=== PATIENT | female | born 1985 | race Caucasian/White ===

== ENCOUNTER 2017-04-10 18:00 | Inpatient (IN) | payer OTHER ==
[~2017-04-10] VITALS: Ht 160 cm; Wt 77.3 kg
[2017-04-10] MEDS ORDERED: PREN1TAB79 PO (19:42)
[2017-04-10] MEDS ORDERED: IRON1TAB78 PO (19:42)
[2017-04-10 19:43] VITALS: Ht 160 cm; Wt 77.3 kg
[2017-04-10] MEDS: LACTATED RINGER'S 1,000 ML IV SCH (19:50)
[2017-04-10] MEDS ORDERED: BUTORPHANOL 2 MG INJ IV PRN ×2 (20:00)
[2017-04-10] MEDS ORDERED: OXYTOCIN 30 UNITS/LR 500 ML IV PRN (20:00)
[2017-04-10] MEDS ORDERED: MISOPROSTOL 200 MCG TAB PR PRN (20:00)
[2017-04-10] MEDS ORDERED: IBUPROFEN 600 MG TAB PO PRN (20:00)
[2017-04-10] MEDS ORDERED: CARBOPROST 250 MCG INJ IM PRN (20:00)
[2017-04-10] MEDS ORDERED: OXYTOCIN 30 UNITS/LR 500 ML IV SCH ×3 (20:00)
[2017-04-10] MEDS ORDERED: METHYLERGONOVINE 0.2 MG INJ IM PRN (20:00)
[2017-04-10] MEDS ORDERED: LIDOCAINE 1% (MPF) 30 ML INJ INJ PRN (20:00)
[2017-04-10] MEDS ORDERED: LACTATED RINGER'S 1,000 ML IV PRN (20:00)
[2017-04-10] MEDS ORDERED: OXYCODONE/ASPIRIN (4.88/325) TAB PO PRN (20:00)
[2017-04-10] MEDS ORDERED: MINERAL OIL LIGHT 10 ML VIAL TOP PRN (20:00)
[2017-04-10 20:09] LABS: BASOPHILS % 0.2 % (0.0-2.0); EOSINOPHILS # 0.2 10^3/ul (0.0-0.5); EOSINOPHILS % 1.7 % (0.0-7.0); HEMATOCRIT 34.8 % (37.0-47.0); HEMOGLOBIN 11.9 g/dl (12.0-16.0); LYMPHOCYTES # 1.5 10^3/ul (0.8-2.9); LYMPHOCYTES % 14.6 % (15.0-51.0); MEAN CORPUSCULAR HEMOGLOBIN 30.1 pg (29.0-33.0); MEAN CORPUSCULAR HGB CONC 34.2 g/dl (32.0-37.0); MEAN CORPUSCULAR VOLUME 88.1 fl (82.0-101.0); MEAN PLATELET VOLUME 11.5 fl (7.4-10.4); MONOCYTE # 0.8 10^3/ul (0.3-0.9); MONOCYTES % 7.8 % (0.0-11.0); NEUTROPHIL # 7.6 10^3/ul (1.6-7.5); NEUTROPHILS % 75.1 % (39.0-77.0); PLATELET COUNT 159 10^3/UL (140-415); RED BLOOD COUNT 3.95 10^6/ul (4.20-5.40); RED CELL DISTRIBUTION WIDTH 13.2 % (11.5-14.5); WHITE BLOOD COUNT 10.1 10^3/ul (4.8-10.8)
[2017-04-10 20:23] LABS: INR 0.89; PT RATIO 0.9
[2017-04-10 20:24] LABS: PARTIAL THROMBOPLASTIN TIME 26.6 Sec (25.0-35.0)
[2017-04-11] MEDS: LACTATED RINGER'S 1,000 ML IV SCH ×5 (00:45→23:48)
[2017-04-11] MEDS ORDERED: FENTAnyl 2MCG/ML-ROPIV 0.2% 100 ML ONE (04:20)
[2017-04-11] MEDS ORDERED: NALOXONE (0.4 MG/ML) INJ IV PRN ×2 (05:00→19:00)
[2017-04-11] MEDS ORDERED: FENTAnyl 2MCG/ML-ROPIV 0.2% 100 ML BAG EPI SCH (05:00)
[2017-04-11] MEDS ORDERED: LIDOCAINE 2% (SDV) 5 ML INJ ONE (07:00)
--- NOTE | 2017-04-11 08:20 | HP ---
Date/Time of Note Date/Time of Note DATE: 04/11/17 TIME: 08:18 OB - History Hx of Present Chief Complaint: Admitted for induction for postdates Estimated Due Date: Apr 07, 2017 : 2 Para: 1 Care: Good Care Ultrasounds: Normal mid trimester US Obstetrical Complications: None Medical Complications: None Past Family/Social History * Past Medical, Surgical, Family and Obstetric Histories reviewed from chart. Rubella: immune RPR/VDRL: Negative GBS Status: Negative HBsAG: Negative (FHR: some isolated variable decelerations were noticed.Category 1 now) OB Admission Exam Last 72 hours Lab Results CBC & BMP 04/10/17 19:30 WALDEMAR SUGGS MD Apr 11, 2017 08:20
--- NOTE | 2017-04-11 08:30 | PN ---
Date/Time of Note Date/Time of Note DATE: 04/11/17 TIME: 08:27 OB Subjective Subjective Subjective Pitocin was stopped due to variable decelerations FHR: category 1 now OB Objective Objective Objective Cervix: 2 cms 80% effaced - 2 Station AROM:scanty fluid HEENT: WNL Heart: Rhythm Normal Lungs: Clear Abdomen: WNL Extremities: Normal Reflexes: Normal Cervical Dilatation: 2cm Effacement: 75% Station: -2 Membranes: Ruptured Amniotic Fluid: Clear Heart Rate: 130's Accelerations: Accelerations Present Decelerations: No Decelerations Varibility: Moderate Contractions on Admission: 6-10 Minutes Apart Intensity: Mild WALDEMAR SUGGS MD Apr 11, 2017 08:30
[2017-04-11] MEDS ORDERED: CEFAZOLIN 2 GM/50 ML (PMX) 50 ML IVPB ONE ×2 (09:34→10:00)
[2017-04-11] MEDS ORDERED: morphine SULFATE/PF (10 MG/10 ML) INJ ONE (10:13)
[2017-04-11] MEDS ORDERED: KETOROLAC 30 MG INJ ONE (10:19)
[2017-04-11] MEDS ORDERED: METOCLOPRAMIDE 10 MG INJ ONE (10:19)
[2017-04-11] MEDS ORDERED: EPHEDrine SULFATE 50 MG/5 ML SYG ONE (10:34)
[2017-04-11 10:50] LABS: CBV Base Excess -3.5 mmol/L; CBV Oxygen Sat 41.1 mmHG; CBV Total Hemglobin 16.5 g/dl; Cord Blood Venous pO2 21.9 mmHG (15.0-45.0); Fraction OxyHgb Cord Venous 40.1 %; MODE ROOM AIR; MetHgb Cord Venous 1.4 %; Sample Type CBV
--- NOTE | 2017-04-11 10:52 | PREOPHP ---
DATE OF ADMISSION: 04/10/2017 ON/[employer] MANAGER PHYSICIAN: Everette Aguilar MD. CHIEF COMPLAINT: Repetitive prolonged decelerations of heart rate. HISTORY OF PRESENT ILLNESS: This is a 31-year-old female, 2, para 1, whose EDC confirmed by serial ultrasound done of the [facility] was April 07. She was admitted yesterday for induction of labor for postdates. Throughout the night, there were small variable decelerations and the Pitocin stimulation was stopped. heart rate went back to category 1. Early this morning she was AROM and scanty fluid came out. Pitocin was restarted. A prolonged deceleration reappeared about an hour and half later, and the Pitocin was stopped. The patient remained no progress and the cervix still being 1-2 cm, remote from delivery. In view of the repeated variables and prolonged deceleration the patient is counseled to have this baby by section now. The benefits, risks, and possible complications were discussed with the patient. The surgical informed consent was obtained. All her questions were answered to her satisfaction. PAST MEDICAL HISTORY: She has had another delivered vaginally with no problems. She denies any medical problems, including diabetes, cardiovascular disease, hypertension, renal disease, liver disease, neurologic disease, or thyroid problems. ALLERGIES: SHE HAS NO KNOWN ALLERGIES. REVIEW OF SYSTEMS: A 12 point review of systems is noncontributory. FAMILY HISTORY: Noncontributory. PHYSICAL EXAMINATION: GENERAL APPEARANCE: Well developed, well nourished, in distress because of the situation. VITAL SIGNS: Stable. Blood pressure 100/60. HEENT: Within normal limits. Pupils are PERRLA. NECK: Supple. Thyroid is not palpable. There is no lymphadenopathy. LUNGS: Clear to percussion auscultation. HEART: Normal sinus rhythm. No murmur. ABDOMEN: Soft, enlarged uterus is about 34 cm above the pubic bone. Single baby, longitudinal lie. heart rate at the time is 140, there are no decelerations. PELVIC: Pelvic exam recently number Dr. Aguilar unchanged, cervix is 2 cm, 80 percent effaced. Baby still high. EXTREMITIES: Within normal limits. NEUROLOGIC: Also normal. IMPRESSION: Forty weeks and 4 days gestation. distress. Patient will be admitted via immediate section. Dictated By: Eros Dawson MD /fnt/sahra /Document#: [id number] CC: Everette Aguilar MD;*End* MTDD
[2017-04-11] MEDS ORDERED: OXYTOCIN 30 UNITS/LR 500 ML IV ONE (11:12)
--- NOTE | 2017-04-11 11:28 | SIPON ---
Date/Time of Note Date/Time of Note DATE: 04/11/17 TIME: 11:25 Dictated Operative Report Preoperative Diagnosis 40 weeks and 4 days, distress Postoperative Diagnosis Same Operation/Procedure Performed Surgeon Dr.Carlos Otis Dawson assistant customer service manager Dr.Ramin Aguialr Anesthesia: epidural Estimated blood loss: other Transfusion Required none Specimen Placenta.Blood gases Grafts/Implants none Complications none WALDEMAR DAWSON MD Apr 11, 2017 11:28
[2017-04-11] MEDS ORDERED: ONDANSETRON 4 MG INJ IV PRN ×3 (11:30→19:00)
[2017-04-11] MEDS ORDERED: MISOPROSTOL 200 MCG TAB PR PRN (11:30)
[2017-04-11] MEDS ORDERED: DIPHENHYDRAMINE 50 MG INJ IV PRN ×2 (11:30→19:00)
[2017-04-11] MEDS ORDERED: MEPERIDINE 25 MG INJ IV PRN (11:30)
[2017-04-11] MEDS ORDERED: METOCLOPRAMIDE 10 MG INJ IV PRN (11:30)
[2017-04-11] MEDS ORDERED: OXYCODONE/ACETAMINOPHEN (5/325) TAB PO PRN (11:30)
[2017-04-11] MEDS ORDERED: METHYLERGONOVINE 0.2 MG INJ IM PRN (11:30)
[2017-04-11] MEDS ORDERED: LANOLIN 7 GM TUBE TOP PRN (11:30)
[2017-04-11] MEDS ORDERED: CARBOPROST 250 MCG INJ IM PRN (11:30)
[2017-04-11] MEDS ORDERED: OXYTOCIN 30 UNITS/LR 500 ML IV PRN (11:30)
[2017-04-11] MEDS ORDERED: HYDROmorphONE (0.2 MG/ML) 10ML SYG IV PRN ×2 (11:30)
[2017-04-11] MEDS: HYDROmorphONE (0.2 MG/ML) 10ML SYG IV PRN ×2 (12:24→12:44)
[2017-04-11 13:34] LABS: HEMATOCRIT 28.5 % (37.0-47.0); HEMOGLOBIN 9.5 g/dl (12.0-16.0)
[2017-04-11 13:50] VITALS: BP 120/71; PULSE 96; RESP 20
[2017-04-11] MEDS: IBUPROFEN 800 MG TAB PO SCH ×2 (14:00→22:00)
[2017-04-11 16:08] VITALS: BP 119/71; PULSE 87; RESP 18
[2017-04-11] MEDS ORDERED: HYDROmorphONE 1 MG/ML SYG IV PRN ×5 (18:00→19:00)
[2017-04-11] MEDS ORDERED: DIPHENHYDRAMINE 50 MG INJ IM PRN (18:00)
[2017-04-11] MEDS: CEFAZOLIN 2 GM/50 ML (PMX) 50 ML IV SCH (18:03)
[2017-04-11] MEDS ORDERED: KETOROLAC 30 MG INJ IV PRN (19:00)
[2017-04-11] MEDS ORDERED: LACTATED RINGER'S 1,000 ML IV SCH (19:30)
[2017-04-11 19:45] VITALS: BP 109/72; PULSE 103; RESP 18
[2017-04-11] MEDS: OXYTOCIN 30 UNITS/LR 500 ML IV SCH (19:55)
[2017-04-11 23:45] VITALS: BP 107/73; PULSE 90; RESP 18
[2017-04-11] MEDS: KETOROLAC 30 MG INJ IV PRN (23:56)
[2017-04-12] MEDS: CEFAZOLIN 2 GM/50 ML (PMX) 50 ML IV SCH ×2 (02:04→03:30)
[2017-04-12 02:10] VITALS: BP 98/53; PULSE 106; RESP 18
[2017-04-12 04:00] VITALS: BP 104/59; PULSE 101; RESP 18
[2017-04-12] MEDS: IBUPROFEN 800 MG TAB PO SCH ×3 (06:00→21:32)
--- NOTE | 2017-04-12 06:14 | OPR ---
DATE OF OPERATION: 04/11/2017 PREOPERATIVE DIAGNOSES: 1. Forty weeks and 4 days gestation. 2. distress. POSTOPERATIVE DIAGNOSES: 1. Forty weeks and 4 days gestation. 2. distress. OPERATIVE PROCEDURE: Emergency low segment transverse section. SURGEON: Eros Dawson MD MOUNTED POLICE: Dr. Lauren MD ANESTHESIA: Epidural by MD Junior FINDINGS: Baby girl, scores 8 and 9. Blood gases were sent as well as the placenta to pathology. ESTIMATED BLOOD LOSS: 1000 mL. COMPLICATIONS: None. PROCEDURE AND FINDINGS: With the patient under good general anesthesia, she was laid in the dorsal recumbent position, tilted to the left side. She had a Gomez catheter draining the bladder. After appropriate booster of the epidural anesthesia, her abdomen and upper thighs were prepped with ChloraPrep and after 3 minutes she was draped in the usual sterile fashion for this procedure. A Pfannenstiel incision was done and carried through all the layers of the abdominal wall with ease. The abdomen and uterine segment was opened transversely high and a living female child was delivered from LOP position and immediately handed to the respiratory team commissions coordinator. The baby had score 8 at 1st minute and 9 at 5 minutes. Supple umbilical cord was sent for blood gases. The placenta was delivered and also sent to pathology. The uterine cavity cleansed with a clean moist laparotomy pad. The incision of the uterus was closed with a continuous running stitch of number 1 PDS. A small bleeder of the left corner was controlled with a [id number] suture of 0 Vicryl. The pelvis was thoroughly cleansed with clean, moist laparotomy pads. The incision of the uterus was checked for bleeders and there were none. It was covered with Interceed to avoid adhesions. The abdomen was closed in layers starting with the peritoneum with continuous running stitches of 0 chromic catgut. The fascia was closed with a continuous running stitch of 0 Vicryl. Subcutaneous tissues were approximated with continuous running stitches of 0 plain gut.The skin was brought together with 4-0 Monocryl. Sterile pressure dressing was applied. Patient taken to recovery room with vital signs stable. ESTIMATED BLOOD LOSS: 1000 mL. COUNTS: Needle, sponge, and instrument count at the end of the procedure were correct twice. There was about 600 mL of clear urine in the Gomez bag. Dictated By: Eros Dawson MD /aden/madhavi /Document#: [id number] CC: Everette Aguilar MD [facility]
[2017-04-12 08:30] VITALS: BP 105/58; PULSE 104; RESP 20
--- NOTE | 2017-04-12 08:47 | PN ---
Date/Time of Note Date/Time of Note DATE: 04/12/17 TIME: 08:45 OB Subjective Subjective Subjective Looks good,sitting up in bed.Good pain control.Good output.Minimal vaginal bleeding. OB Objective Objective Objective CBC pending,pulse 100.Denies dizziness. HEENT: WNL Heart: Rhythm Normal Lungs: Clear Extremities: Normal WALDEMAR SGUGS MD Apr 12, 2017 08:47
[2017-04-12] MEDS ORDERED: INFLUENZA VIRUS VACCINE 0.5 ML (DISPENSING) IM* ONE (09:00)
[2017-04-12 09:16] LABS: BASOPHILS % 0.1 % (0.0-2.0); EOSINOPHILS # 0.1 10^3/ul (0.0-0.5); EOSINOPHILS % 0.5 % (0.0-7.0); HEMATOCRIT 21.4 % (37.0-47.0); HEMOGLOBIN 7.2 g/dl (12.0-16.0); LYMPHOCYTES # 1.1 10^3/ul (0.8-2.9); LYMPHOCYTES % 10.2 % (15.0-51.0); MEAN CORPUSCULAR HEMOGLOBIN 30.3 pg (29.0-33.0); MEAN CORPUSCULAR HGB CONC 33.6 g/dl (32.0-37.0); MEAN CORPUSCULAR VOLUME 89.9 fl (82.0-101.0); MEAN PLATELET VOLUME 11.2 fl (7.4-10.4); MONOCYTE # 0.9 10^3/ul (0.3-0.9); MONOCYTES % 7.7 % (0.0-11.0); RED BLOOD COUNT 2.38 10^6/ul (4.20-5.40); RED CELL DISTRIBUTION WIDTH 13.9 % (11.5-14.5); WHITE BLOOD COUNT 11.1 10^3/ul (4.8-10.8)
[2017-04-12] MEDS: KETOROLAC 30 MG INJ IV PRN (09:21)
[2017-04-12 09:24] LABS: PLATELET COUNT 121 10^3/UL (140-415)
[2017-04-12] MEDS ORDERED: CEFAZOLIN 2 GM/50 ML (PMX) 50 ML IVPB SCH (11:00)
--- NOTE | 2017-04-12 12:01 | PN ---
Date/Time of Note Date/Time of Note DATE: 04/12/17 TIME: 11:47 Assessment/Plan VTE Prophylaxis VTE Prophylaxis Intervention: ambulation Lines/Catheters IV Catheter Type (from Nrsg): Peripheral IV Subjective 24 Hr Interval Summary Free Text/Dictation aneshesia note: A 31 year female s/p duramorph pod #1 id doing well. pain is controlled. no n/v , headache, itching, back pain ,or inflammation. care per surgery Exam/Review of Systems Vital Signs Vitals Vital Signs Date Time Temp Pulse Resp B/P Pulse Ox O2 Delivery O2 Flow Rate FiO2 04/12/17 08:30 98.8 104 20 105/58 97 Room Air 04/12/17 03:40 21 Intake and Output 04/11/17 04/11/17 04/12/17 15:00 23:00 07:00 Intake Total 125 ml 500 ml Output Total 800 ml 600 ml 900 ml Balance -675 ml -100 ml -900 ml Results Result Diagram: 04/12/17 0844 Results 24 hrs Laboratory Tests Test 04/11/17 13:25 04/12/17 08:44 Hemoglobin 9.5 #L 7.2 #L Hematocrit 28.5 L 21.4 #L White Blood Count 11.1 H Red Blood Count 2.38 #L Mean Corpuscular Volume 89.9 Mean Corpuscular Hemoglobin 30.3 Mean Corpuscular Hemoglobin Concent 33.6 Red Cell Distribution Width 13.9 Platelet Count 121 #L Mean Platelet Volume 11.2 H Neutrophils % 81.0 H Lymphocytes % 10.2 L Monocytes % 7.7 Eosinophils % 0.5 Basophils % 0.1 Nucleated Red Blood Cells % 0.0 Neutrophils # 9.0 H Lymphocytes # 1.1 Monocytes # 0.9 Eosinophils # 0.1 Basophils # 0.0 Nucleated Red Blood Cells # 0.0 Medications Medications Current Medications Lactated Ringer's (Lr) 1,000 ml @ 125 mls/hr Q8H IV Last administered on t 23:48; Admin Dose 125 MLS/HR; Start 04/11/17 at 11:20 Oxycodone/ Acetaminophen (Percocet (5/ 325)) 1 tab Q4H PRN PO PAIN LEVEL 4-6; Start 04/11/17 at 11:30 Oxycodone/ Acetaminophen (Percocet (5/ 325)) 2 tab Q4H PRN PO PAIN LEVEL 7-10; Start 04/11/17 at 11:30 Ibuprofen (Motrin) 800 mg Q8 PO ; Start 04/11/17 at 14:00 Simethicone (Mylicon) 160 mg Q8H PRN PO DISTENSION/GAS/BLOATING; Start at 11:30 Diphtheria/ Tetanus/Acell Pertussis 0.5 ml 0.5 ml ONCE ONCE IM* ; Start at 09:00; Stop 04/14/17 at 09:01 Oxytocin/Lactated Ringer's 500 ml @ 0 mls/hr ONCE PRN IV For Hemorrhage Management Last administered on 04/11/17 12:22; Admin Dose 125 MLS/HR; Start at 11:30 Methylergonovine Maleate (Methergine) 0.2 mg ONCE PRN IM VAGINAL BLEEDING; Start 04/11/17 at 11:30 Carboprost Tromethamine (Hemabate) 250 mcg ONCE PRN IM VAGINAL BLEEDING; Start 04/11/17 at 11:30 Misoprostol (Cytotec) 1,000 mcg ONCE PRN DE VAGINAL BLEEDING; Start 04/11/17 at 11:30 Diphenhydramine HCl (Benadryl) 25 mg Q6H PRN IM ITCHING; Start 04/11/17 at 18: 00 Hydromorphone HCl (Dilaudid) 1 mg Q4H PRN IV PAIN; Start 04/11/17 at 18:00 Hydromorphone HCl (Dilaudid) 0.2 mg Q4H PRN IV PAIN; Start 04/11/17 at 18:00 Ketorolac Tromethamine (Toradol) 30 mg Q6H PRN IV PAIN Last administered on 09:21; Admin Dose 30 MG; Start 04/11/17 at 18:00; Stop 04/14/17 at 17:59 Ondansetron HCl (Zofran Inj) 4 mg Q6H PRN IV NAUSEA AND/OR VOMITING; Start at 18:00 Naloxone HCl (Narcan) 0.1 mg Q2M PRN IV FOR RESP RATE 8 OR LESS; Start at 19:00; Stop 04/12/17 at 18:59 Ketorolac Tromethamine (Toradol) 30 mg Q6H PRN IV PAIN; Start 04/11/17 at 19:00 ; Stop 04/12/17 at 18:59 Hydromorphone HCl (Dilaudid) 1 mg Q3H PRN IV BREAKTHROUGH PAIN; Start 04/11/17 at 19:00; Stop 04/12/17 at 18:59 Hydromorphone HCl (Dilaudid) 0.2 mg Q3H PRN IV PAIN LEVEL 1-5; Start 04/11/17 at 19:00; Stop 04/12/17 at 18:59 Hydromorphone HCl (Dilaudid) 0.4 mg Q3H PRN IV PAIN LEVEL 6-10; Start 04/11/17 at 19:00; Stop 04/12/17 at 18:59 Diphenhydramine HCl (Benadryl) 25 mg Q6H PRN IV ITCHING; Start 04/11/17 at 19: 00; Stop 04/12/17 at 18:59 Ondansetron HCl 4 mg 4 mg Q6H PRN IV NAUSEA AND/OR VOMITING; Start 04/11/17 at 19:00; Stop 04/12/17 at 18:59 Oxytocin/Lactated Ringer's 500 ml @ 125 mls/hr Q4H IV Last administered on 19:55; Admin Dose 125 MLS/HR; Start 04/11/17 at 19:30 Cefazolin Sodium/ Dextrose (Ancef 2 Gm/50 ml (Pmx)) 50 ml @ 100 mls/hr ONCE IVPB Last administered on 04/12/17 11:10; Admin Dose 100 MLS/HR; Start at 11:00; Stop 04/12/17 at 12:00 KOSTAS ZUÑIGA MD Apr 12, 2017 12:01 KOSTAS ZUÑIGA MD Apr 12, 2017 12:01
[2017-04-12 16:00] VITALS: BP 110/61; PULSE 98; RESP 18
[2017-04-12] MEDS: OXYCODONE/ACETAMINOPHEN (5/325) TAB PO PRN ×2 (17:34→23:34)
[2017-04-12 20:00] VITALS: BP 106/56; PULSE 84; RESP 18
[2017-04-13 03:57] VITALS: BP 102/58; PULSE 83; RESP 18
[2017-04-13] MEDS: IBUPROFEN 800 MG TAB PO SCH ×3 (05:36→21:49)
--- NOTE | 2017-04-13 07:37 | PN ---
Date/Time of Note Date/Time of Note DATE: 04/13/17 TIME: 07:35 OB Subjective Subjective Subjective Afebrile.Stable Beginning to pass flatus. OB Objective Objective Objective Up and about,nursing well. HEENT: WNL Heart: Rhythm Normal Lungs: Clear Abdomen: WNL Extremities: Normal WALDEMAR SUGGS MD Apr 13, 2017 07:37
[2017-04-13 08:30] VITALS: BP 100/58; PULSE 75; RESP 16
[2017-04-13] MEDS: FERROUS SULFATE (EC) 325 MG TAB PO SCH ×2 (09:25→21:49)
[2017-04-13] MEDS: MAGNESIUM HYDROXIDE 30ML CUP PO SCH ×2 (09:25→21:49)
[2017-04-13] MEDS: OXYCODONE/ACETAMINOPHEN (5/325) TAB PO PRN (11:35)
[2017-04-13 16:00] VITALS: BP 111/74; PULSE 74; RESP 16
[2017-04-13 20:25] VITALS: BP 112/72; PULSE 93; RESP 19
[2017-04-14] MEDS: OXYTOCIN 30 UNITS/LR 500 ML IV SCH (01:56)
[2017-04-14 04:15] VITALS: BP 115/67; PULSE 80; RESP 18
[2017-04-14] MEDS: IBUPROFEN 800 MG TAB PO SCH ×2 (05:57→15:35)
[2017-04-14 08:00] VITALS: BP 111/59; PULSE 87; RESP 18
[2017-04-14] MEDS: MAGNESIUM HYDROXIDE 30ML CUP PO SCH (09:00)
[2017-04-14] MEDS ORDERED: DIPHTH/TET/ACEL PERTUSS (ADULT) 0.5 ML VIAL IM* ONE (09:00)
[2017-04-14] MEDS: FERROUS SULFATE (EC) 325 MG TAB PO SCH (10:06)
[2017-04-14] MEDS: OXYCODONE/ACETAMINOPHEN (5/325) TAB PO PRN (10:07)
--- NOTE | 2017-04-14 12:44 | PD.PPDC ---
NUTRITION SPECIALIST Discharge Instruction Diagnosis Final Diagnosis: Term . distress. Condition Patient Condition: Good Diet Diet: Resume Regular Diet Activity/Restrictions Activity: Normal Activity May Shower Restrictions: No Exercising No Lifting Minimize Stair-climbing Nothing in the Vagina Wound/Drain Care Instructions Wound/Drain Care Instructions: Wash with soap and water Keep clean and dry Follow-up Follow-up with Physician: 1, Week/Weeks Return to clinic for FIELD INTERVIEWER Instructions: Fever greater than 101 Worsening abdominal pain Excessive Vaginal Bleeding Unable to tolerate diet Surgical Instructions: Incisional Drainage Incisional Redness WALDEMAR SUGGS MD Apr 14, 2017 12:44
--- NOTE | 2017-04-15 13:14 | DS ---
DATE OF ADMISSION: 04/10/2017 DATE OF DISCHARGE: 04/14/2017 FINAL DIAGNOSES: Forty weeks and 4 days gestation. section on emergency basis for distress with of a baby girl. SUMMARY: The patient is a 31-year-old female, 2, para 1, who was brought in for induction of labor at 40 weeks and 4 days gestation. During induction, variable decelerations were noticed. The induction was suspended for a while. When it was restarted, profound prolonged decelerations ensued, thus she had to be rushed to have a section. This was done under epidural anesthesia she already had. Gave to a baby girl, scores 8 and 9. Postoperatively, the patient has done well. She was very anemic and was started on iron p.o. b.i.d. Today she is tolerating fluid well. She is ambulatory and no problems with dizziness. She showered yesterday and tolerated well. Incision is healing well. No problem. She is passing gas She is discharged home with written instructions. She is given Percocet to take 1 every 1 or 2 every 6 hours p.r.n. pain. She was given written instructions. She is to make an appointment for follow up visit in 1 week. She is discharged in good condition. Dictated By: Eros Dawson MD /aden/madhavi /Document#: [id number] KEANU
== END 2017-04-14 17:36 | disposition home or self-care (01) | DRG 766 ==
LOC: L-D 19:00 → PP1 04-11 14:15
PROVIDERS: ADMIT Specialist; ATTEND Specialist
PROC: 3E033VJ Introduction of Other Hormone into Peripheral Vein, Percutaneous Approach (ICD-10-PCS; 2017-04-10)
PROC: 10D00Z1 Extraction of Products of Conception, Low, Open Approach (ICD-10-PCS; principal; 2017-04-11 09:45)
PROC: 3E0234Z Introduction of Serum, Toxoid and Vaccine into Muscle, Percutaneous Approach (ICD-10-PCS; 2017-04-14)
DX: O48.0 Post-term pregnancy (principal); O76 Abnormality in fetal heart rate and rhythm complicating labor and delivery; Z37.0 Single live birth; Z3A.40 40 weeks gestation of pregnancy; Z23 Encounter for immunization
CPT/HCPCS: 36415; 62319; 82803; 85014; 85018; 85025; 85610; 85730; 86592; 86850; 86900; 86901; 86920; 87340; 88307; 90686; 90715; 94760; 99464; J0690; J1170; J1885; J2274; J2590; J2765; J3010; J7120

== ENCOUNTER 2017-06-08 21:58 | Observation (INO) | payer OTHER ==
[~2017-06-08] VITALS: Ht 160 cm; Wt 70.1 kg
[~2017-06-08 21:58] MED LIST: IRON1TAB78 PO
[2017-06-08] MEDS ORDERED: SOD CHLORIDE 0.9% 250 ML IV ONE (22:03)
--- NOTE | 2017-06-08 22:10 | ERD ---
ER Documentation Chief Complaint Chief Complaint HPI Patient is a 31-year-old female who is 2 months and presents with sudden onset, constant, severe vaginal bleeding for the last 2-1/2 hours. She felt lightheaded, but did not lose consciousness. She denies chest pain or shortness of breath. She is not on blood thinners. She reports that she was seen in the ER in [place] 2 weeks ago, and at this time she had heavy bleeding for approximately 2 days. She thinks her hemoglobin was 6 or 7. She is currently breast-feeding. Her baby was born by . She states that her blood type is O positive. She did not receive a blood transfusion. She has not been using pads. She did have mild pelvic cramping that has since resolved. She has had vaginal spotting for the last 2 days. On EMS arrival, she was found to have a blood pressure in the 70s systolic and heart rate of 105. Her systolic blood pressure improved to 85 with 250 mL normal saline. ROS All systems reviewed and are negative except as per history of present illness. Medications Home Meds Reported Medications Vit-Iron Fumarate-FA ( Tablet) 1 Each Tablet, 1 TAB PO DAILY, TAB 06/09/17 Iron,Carbonyl/Vit C/Vit B12/Fa (IRON 100 PLUS TABLET) 1 Each Tablet, 1 EACH PO, TAB 04/10/17 Discontinued Reported Medications Ufc39-Ualc-Khono Acid (Prenata Chewable) 1 Each Tab.chew, 1 TAB PO DAILY, TAB.CHEW 06/09/17 [id number] Okiruqey-GD-EAX ( 19) 1 Each Tablet, 1 TAB PO DAILY, TAB 06/09/17 Allergies Allergies: Coded Allergies: No Known Allergy (Unverified , 04/10/17) PMhx/Soc Past medical history: None Past surgical history: Social history: Denies tobacco or alcohol FmHx Family History: No coronary disease, No diabetes Physical Exam Vitals Vital Signs Date Time Temp Pulse Resp B/P Pulse Ox O2 Delivery O2 Flow Rate FiO2 06/09/17 00:25 98.8 92 13 97/60 100 Room Air 06/08/17 23:55 98.6 92 14 91/53 100 Room Air 06/08/17 23:35 113 16 92/49 100 Room Air 06/08/17 22:50 103 16 100/59 100 Room Air 06/08/17 22:07 98.3 110 20 128/71 100 Physical Exam Const: Alert, no acute distress Head: Atraumatic Eyes: Normal Conjunctiva, Severe pallor, no icterus ENT: Normal External Ears, Nose and Mouth. Mucous membranes moist Neck: Full range of motion. Resp: Clear to auscultation bilaterally, No wheezes, no rales Cardio: Mild tachycardia, regular rhythm, no murmurs Abd: Soft, non tender, non distended. No rebound, no guarding Pelvic: Small clot in a closed cervical office. Normal cervix and vaginal mucosa. No CMT. No active bleeding. Rectal: Guaiac negative mucus with positive control Skin: No petechiae or rashes Back: No midline or flank tenderness Ext: No cyanosis, or edema Neur: Awake and alert, Cranial nerves II through XII intact bilaterally, strength and sensation full in 4 extremities Psych: Normal Mood and Affect Result Diagram: 06/08/17222006/08/172220 Results 24 hrs Laboratory Tests Test 06/08/17 22:21 06/09/17 01:00 White Blood Count 12.810^3/ul Red Blood Count 2.2610^6/ul Hemoglobin 5.7g/dl Hematocrit 18.9% Mean Corpuscular Volume 83.6fl Mean Corpuscular Hemoglobin 25.2pg Mean Corpuscular Hemoglobin Concent 30.2g/dl Red Cell Distribution Width 15.7% Platelet Count 70940^3/UL Mean Platelet Volume 10.7fl Neutrophils % % Segmented Neutrophils % (Manual) 81% Lymphocytes % % Lymphocytes % (Manual) 15% Monocytes % % Monocytes % (Manual) 4% Eosinophils % % Basophils % % Nucleated Red Blood Cells % 0.0/100WBC Neutrophils # 10^3/ul Absolute Lymphocytes (Manual) 1.910^3/ul Lymphocytes # 1.910^3/ul Monocytes # 0.510^3/ul Absolute Monocytes (Manual) 0.510^3/ul Eosinophils # 10^3/ul Basophils # 10^3/ul Nucleated Red Blood Cells # 10^3/ul Polychromasia 1+ Hypochromasia 1+ Prothrombin Time 13.9Sec Prothrombin Time Ratio 1.1 INR International Normalized Ratio 1.07 Activated Partial Thromboplast Time 27.9Sec Sodium Level 145mmol/L Potassium Level 3.4mmol/L Chloride Level 110mmol/L Carbon Dioxide Level 24mmol/L Anion Gap 14 Blood Urea Nitrogen 18mg/dl Creatinine 0.83mg/dl Glucose Level 133mg/dl Calcium Level 8.4mg/dl Total Bilirubin 0.1mg/dl Direct Bilirubin 0.00mg/dl Indirect Bilirubin 0.1mg/dl Aspartate Amino Transf (AST/SGOT) 26IU/L Alanine Aminotransferase (ALT/SGPT) 43IU/L Alkaline Phosphatase 51IU/L Total Protein 6.2g/dl Albumin 3.4g/dl Globulin 2.80g/dl Albumin/Globulin Ratio 1.21 Beta HCG, Quantitative < 2.4mIU/ml Urine Color YELLOW Urine Clarity SLIGHTLY CLOUDY Urine pH 5.0 Urine Specific [place] 1.026 Urine Ketones 1+mg/dL Urine Nitrite NEGATIVEmg/dL Urine Bilirubin NEGATIVEmg/dL Urine Urobilinogen NEGATIVEmg/dL Urine Leukocyte Esterase NEGATIVELeu/ul Urine Microscopic RBC 0/HPF Urine Microscopic WBC 6/HPF Urine Mucus MANY/HPF Urine Hemoglobin NEGATIVEmg/dL Urine Glucose NEGATIVEmg/dL Urine Total Protein 2+mg/dl Current Medications Medications (Trade) Dose Ordered Sig/Arely Route PRN Reason Start Time Stop Time Status Last Admin Dose Admin Sodium Chloride (NS) 250 ml @ 0 mls/hr Q0M ONCE IV 06/08/17 22:03 06/08/17 22:07 DC 06/08/17 22:12 Ondansetron HCl (Zofran Inj) 4 mg STK-MED ONCE .ROUTE 06/08/17 22:16 06/08/17 22:17 DC Ondansetron HCl (Zofran Inj) 4 mg STK-MED ONCE .ROUTE 06/08/17 23:25 06/08/17 23:26 DC Ondansetron HCl (Zofran Inj) 4 mg ONCE STAT IV 06/08/17 23:58 06/09/17 00:00 DC 06/08/17 23:40 Ondansetron HCl (Zofran Inj) 4 mg ONCE STAT IV 06/08/17 23:58 06/09/17 00:00 DC 06/08/17 22:19 Procedures/MDM MDM: Patient is a 31-year-old female who presents with heavy vaginal bleeding. She was hypotensive at home and found to be severely anemic with a hemoglobin of 5.7. She had a similar episode 2 weeks ago that spontaneously resolved, and her hemoglobin at that time was approximately 7. She has no evidence of ongoing vaginal bleeding, no evidence of gastrointestinal bleeding. She has a benign abdominal exam, without suggestion of intraperitoneal bleeding. Her test is negative. She was given a transfusion of 1 unit of packed red blood cells, and had improving vital signs and significantly improved appearance. She was relatively asymptomatic. Her labs showed no signs of infection, or other cause of shock. She will be admitted for further blood transfusion and ASSISTANT TO THE CEO consultation. I attempted to contact the snow remover on- call, Dr. Senior, but page was not returned. Given that the patient does not have active vaginal bleeding, I do not believe that there is a need for emergent ASSISTANT TO THE CEO consultation. The patient's regular MANUFACTURING SPECIALIST is on staff at the hospital and can be consulted on a nonemergent basis. There is no evidence of bleeding diathesis, elevated INR, or low platelets. Departure Diagnosis: Primary Impression: Hemorrhagic shock Additional Impression: Excessive vaginal bleeding Condition: Stable DOUGIE MATHEW MD Jun 08, 2017 22:10
[2017-06-08] MEDS ORDERED: ONDANSETRON 4 MG INJ ONE ×2 (22:16→23:25)
[2017-06-08 23:05] LABS: ABNORMAL IP MESSAGE 1; HEMATOCRIT 18.9 % (37.0-47.0); MEAN CORPUSCULAR HEMOGLOBIN 25.2 pg (29.0-33.0); MEAN CORPUSCULAR HGB CONC 30.2 g/dl (32.0-37.0); MEAN CORPUSCULAR VOLUME 83.6 fl (82.0-101.0); MEAN PLATELET VOLUME 10.7 fl (7.4-10.4); PLATELET COUNT 344 10^3/UL (140-415); RED BLOOD COUNT 2.26 10^6/ul (4.20-5.40); RED CELL DISTRIBUTION WIDTH 15.7 % (11.5-14.5); WHITE BLOOD COUNT 12.8 10^3/ul (4.8-10.8)
[2017-06-08 23:12] LABS: HEMOGLOBIN 5.7 g/dl (12.0-16.0); POSITIVE DIFF @See below
--- NOTE | 2017-06-08 23:17 | RADRPT ---
PROCEDURE: US Pelvis. CLINICAL INDICATION: Vaginal bleeding TECHNIQUE: Multiple sonographic images of the pelvis were obtained utilizing a transabdominal tech nique. The images were reviewed on a PACS workstation. COMPARISON: None available FINDINGS: Uterus: Normal in size, contour and echogenicity with no evidence for myometrial masses. Size is est imated at 8.1 x 4.7 x 4 cm. Cervix: No abnormalities of significance are seen. Endometrium: Normal in thickness; 2.3 mm. Right ovary / adnexa: Normal in size estimated at 3.2 x 1.9 x 1.9 cm. No evidence for masses, norm al blood flow on Doppler interrogation. Left ovary/adnexa: Normal in size estimated at 3.6 x 2 x 1.6 cm. No evidence for solid masses, norm al blood flow on Doppler interrogation. Cul-de-sac: No evidence of free fluid. RPTAT:HJJR IMPRESSION: Unremarkable pelvic ultrasound without findings to explain the patient's provided history. Physician Greta Date Time Electronically viewed and signed by Physician Greta on 06/08/2017 23:17 JR/
[2017-06-08 23:19] LABS: INR 1.07; PROTIME 13.9 Sec (12.2-14.2); PT RATIO 1.1
[2017-06-08 23:20] LABS: PARTIAL THROMBOPLASTIN TIME 27.9 Sec (25.0-35.0)
[2017-06-08 23:25] LABS: ALBUMIN 3.4 g/dl (3.3-4.9); ALBUMIN/GLOBULIN RATIO 1.21; BILIRUBIN,INDIRECT 0.1 mg/dl (0-1.1); BILIRUBIN,TOTAL 0.1 mg/dl (0.2-1.3); CALCIUM 8.4 mg/dl (8.4-10.2); CREATININE 0.83 mg/dl (0.44-1.00); POTASSIUM 3.4 mmol/L (3.5-5.1); TOTAL PROTEIN 6.2 g/dl (6.1-8.1)
[2017-06-08] MEDS ORDERED: ONDANSETRON 4 MG INJ IV STA ×2 (23:58)
[2017-06-09] VITALS (12 sets, daily range): BP systolic 94–109; BP diastolic 53–62; PULSE 65–92; RESP 10–20; TEMP 98.8; Ht 160 cm; Wt 70.1 kg
[2017-06-09 00:48] LABS: LYMPHOCYTES # 1.9 10^3/ul (0.8-2.9); MONOCYTE # 0.5 10^3/ul (0.3-0.9); MONOCYTES % (M) 4 % (0-11)
[2017-06-09 00:49] LABS: HYPOCHROMASIA 1+ (0-0); POLYCHROMASIA 1+ (0-0)
[2017-06-09] MEDS ORDERED: ONDANSETRON 4 MG INJ IV PRN ×2 (01:30→04:00)
[2017-06-09] MEDS ORDERED: ACETAMINOPHEN 325 MG TAB PO PRN (01:30)
[2017-06-09 01:52] LABS: ADD UMIC YES; UR ASCORBIC ACID NEGATIVE (NEGATIVE); UR BILIRUBIN (Dip) NEGATIVE (NEGATIVE); UR BLOOD (Dip) NEGATIVE (NEGATIVE); UR CLARITY SLIGHTLY CLOUDY (CLEAR); UR COLOR YELLOW (YELLOW); UR GLUCOSE (Dip) NEGATIVE (NEGATIVE); UR KETONES (Dip) 1+ mg/dL (NEGATIVE); UR LEUKOCYTE ESTERASE (Dip) NEGATIVE Leu/ul (NEGATIVE); UR MUCUS MANY /HPF (NONE SEEN); UR NITRITE (Dip) NEGATIVE (NEGATIVE); UR RBC 0 /HPF (0-5); UR SPECIFIC GRAVITY (Dip) 1.026 (1.003-1.030); UR TOTAL PROTEIN (Dip) 2+ mg/dl (NEGATIVE); UR UROBILINOGEN (Dip) NEGATIVE (NEGATIVE)
[2017-06-09] MEDS ORDERED: PREN1TAB17 PO (02:21)
[2017-06-09] MEDS ORDERED: PREN-47 PO (02:21)
[2017-06-09] MEDS ORDERED: PNV11TAB PO (02:21)
[2017-06-09] MEDS ORDERED: morphine 2 MG INJ IV PRN (04:00)
--- NOTE | 2017-06-09 07:01 | HP ---
Date/Time of Note Date/Time of Note DATE: 06/09/17 TIME: 06:52 Assessment/Plan VTE Prophylaxis VTE Prophylaxis Intervention: SCD's Lines/Catheters IV [facility] Saline Lock Urinary Cath still in place: No Assessment/Plan Assessment/Plan 31-year-old female with recent history of section, at 40 weeks gestation, on emergency basis for distress 2 months ago here with a severe anemia and generalized weakness secondary to vaginal bleeding, of unknown etiology. Pelvic ultrasound unremarkable 1. Severe anemia, secondary to vaginal bleeding Continue telemetry monitoring Blood transfusion Awaiting VEHICLE SERVICE ATTENDANT evaluation Pelvic ultrasound was unremarkable 2. Sepsis, as evidenced by leukocytosis and tachycardia, secondary to UTI -IV antibiotic -Follow-up culture results 3. Mild hypokalemia and hypernatremia -Correct electrolytes as needed HPI/ROS Admit Date/Time Admit Date/Time Jun 09, 2017 at 01:24 Hx of Present Illness This is a 31-year-old female who presented to the ER complaining of vaginal bleeding and generalized weakness. Patient had a section, at 40 weeks gestation, on emergency basis for distress 2 months ago here at [facility]. She said over the past few days she has been noticing heavy vaginal bleeding. When she presented to the ER her blood pressure was 120/71 with a heart rate of 110. Labs shows a hemoglobin of 5.7, WBC almost 13,000, potassium 3.4 and sodium 145. A pelvic ultrasound was unremarkable. . PMH/Family/Social Social History Smoking Status: Never smoker Exam/Review of Systems Vital Signs Vitals Vital Signs Date Time Temp Pulse Resp B/P Pulse Ox O2 Delivery O2 Flow Rate FiO2 06/09/17 04:22 75 06/09/17 03:51 98.8 20 98/53 99 06/09/17 01:45 Room Air Exam Constitutional: alert, oriented Head: atraumatic, normocephalic Eyes: EOMI, PERRL Respiratory: clear to auscultation, normal air movement Cardiovascular: nl pulses, regular rate and rhythm Gastrointestinal: soft, surgical scars, tender Extremities: normal pulses Labs Result Diagram: 06/08/17222006/08/172220 Medications Medications Current Medications Ondansetron HCl (Zofran Inj) 4 mg Q6H PRN IV NAUSEA AND/OR VOMITING; Start 11/ 24/17 at 04:00 Morphine Sulfate (morphine) 2 mg Q4H PRN IV PAIN; Start 06/09/17 at 04:00 SANJAY SIMS MD Jun 09, 2017 07:01
[2017-06-09] MEDS: CEFTRIAXONE 1 GM/50 ML (PMX) 50 ML IVPB SCH ×2 (09:00→11:41)
--- NOTE | 2017-06-09 11:43 | PN ---
Date/Time of Note Date/Time of Note DATE: 06/09/17 TIME: 11:42 Assessment/Plan VTE Prophylaxis VTE Prophylaxis Intervention: SCD's Lines/Catheters IV [facility]ter [facility] (from [facility] Saline Lock Urinary Cath still in place: No Assessment/Plan Chief Complaint/Hosp Course Hospitalist service coverage Subjective: Events noted Objective: Vital signs stable Physical exam No pallor adenopathy icterus Regular no murmur rub gallop Clear Benign. Overweight No edema Assessment and plan 1. Menorrhagia/dysmenorrhea? Stable consult OB 2. Acute blood loss anemia stable transfuse 3. Iron deficiency anemia 4. Acute cystitis? 5. Recent Problems: Exam/Review of Systems Vital Signs Vitals Vital Signs Date Time Temp Pulse Resp B/P Pulse Ox O2 Delivery O2 Flow Rate FiO2 06/09/17 08:26 65 06/09/17 07:50 98.0 18 96/54 98 06/09/17 01:45 Room Air Intake and Output 06/08/17 06/08/17 06/09/17 15:00 23:00 07:00 Intake Total 700 ml Balance 700 ml Results Result Diagram: 06/08/17 2221 06/08/17 2221 Results 24 hrs Laboratory Tests Test 06/08/17 22:21 06/09/17 01:00 White Blood Count 12.8 H Red Blood Count 2.26 L Hemoglobin 5.7 #*L Hematocrit 18.9 L Mean Corpuscular Volume 83.6 Mean Corpuscular Hemoglobin 25.2 L Mean Corpuscular Hemoglobin Concent 30.2 L Red Cell Distribution Width 15.7 H Platelet Count 344 # Mean Platelet Volume 10.7 H Neutrophils % Segmented Neutrophils % (Manual) 81 H Lymphocytes % Lymphocytes % (Manual) 15 Monocytes % Monocytes % (Manual) 4 Eosinophils % Basophils % Nucleated Red Blood Cells % 0.0 Neutrophils # Absolute Lymphocytes (Manual) 1.9 Lymphocytes # 1.9 Monocytes # 0.5 Absolute Monocytes (Manual) 0.5 Eosinophils # Basophils # Nucleated Red Blood Cells # Polychromasia 1+ Hypochromasia 1+ Prothrombin Time 13.9 Prothrombin Time Ratio 1.1 INR International Normalized Ratio 1.07 Activated Partial Thromboplast Time 27.9 Sodium Level 145 H Potassium Level 3.4 L Chloride Level 110 Carbon Dioxide Level 24 Anion Gap 14 Blood Urea Nitrogen 18 Creatinine 0.83 Glucose Level 133 Calcium Level 8.4 Total Bilirubin 0.1 L Direct Bilirubin 0.00 Indirect Bilirubin 0.1 Aspartate Amino Transf (AST/SGOT) 26 Alanine Aminotransferase (ALT/SGPT) 43 Alkaline Phosphatase 51 Total Protein 6.2 Albumin 3.4 Globulin 2.80 Albumin/Globulin Ratio 1.21 Beta HCG, Quantitative < 2.4 Urine Color YELLOW Urine Clarity SLIGHTLY CLOUDY A Urine pH 5.0 Urine Specific [place] 1.026 Urine Ketones 1+ H Urine Nitrite NEGATIVE Urine Bilirubin NEGATIVE Urine Urobilinogen NEGATIVE Urine Leukocyte Esterase NEGATIVE Urine Microscopic RBC 0 Urine Microscopic WBC 6 H Urine Mucus MANY A Urine Hemoglobin NEGATIVE Urine Glucose NEGATIVE Urine Total Protein 2+ H Medications Medications Current Medications Ondansetron HCl (Zofran Inj) 4 mg Q6H PRN IV NAUSEA AND/OR VOMITING; Start at 04:00 Morphine Sulfate 2 mg 2 mg Q4H PRN IV PAIN; Start 06/09/17 at 04:00 Ceftriaxone Sodium (Rocephin) 50 ml @ 100 mls/hr 09 IVPB Last administered on 06/09/17t 11:41; Admin Dose 100 MLS/HR; Start 06/09/17 at 07:00 PAULETTE ALMAZAN MD Jun 09, 2017 11:43
[2017-06-09] MEDS ORDERED: MISOPROSTOL 200 MCG TAB PO ONE ×2 (12:00→18:30)
[2017-06-09 15:15] LABS: BASOPHILS % 0.3 % (0.0-2.0); EOSINOPHILS # 0.1 10^3/ul (0.0-0.5); EOSINOPHILS % 1.2 % (0.0-7.0); HEMATOCRIT 25.8 % (37.0-47.0); HEMOGLOBIN 8.3 g/dl (12.0-16.0); LYMPHOCYTES % 25.8 % (15.0-51.0); MEAN CORPUSCULAR HEMOGLOBIN 27.5 pg (29.0-33.0); MEAN CORPUSCULAR HGB CONC 32.2 g/dl (32.0-37.0); MEAN CORPUSCULAR VOLUME 85.4 fl (82.0-101.0); MEAN PLATELET VOLUME 10.8 fl (7.4-10.4); MONOCYTE # 0.9 10^3/ul (0.3-0.9); NEUTROPHIL # 4.7 10^3/ul (1.6-7.5); NEUTROPHILS % 60.6 % (39.0-77.0); PLATELET COUNT 211 10^3/UL (140-415); RED BLOOD COUNT 3.02 10^6/ul (4.20-5.40); RED CELL DISTRIBUTION WIDTH 14.5 % (11.5-14.5); WHITE BLOOD COUNT 7.8 10^3/ul (4.8-10.8)
[2017-06-09 15:42] LABS: CALCIUM 7.9 mg/dl (8.4-10.2); CREATININE 0.69 mg/dl (0.44-1.00); MAGNESIUM 1.8 mg/dl (1.7-2.5); PHOSPHORUS 3.8 mg/dl (2.5-4.9); POTASSIUM 3.8 mmol/L (3.5-5.1)
[2017-06-09 15:44] LABS: IRON 54 ug/dl (35-150)
[2017-06-09 15:54] LABS: TOTAL IRON BINDING CAPACITY 363 ug/dl (241-421)
--- NOTE | 2017-06-09 16:26 | CONS ---
DATE OF ADMISSION: 06/09/2017 DATE OF CONSULTATION: Thank you for consulting me. This 31-year-old is status post , admitted through [facility] with menorrhagia and hypotension. Hemoglobin was at 5. PAST MEDICAL HISTORY: Denies. PAST SURGICAL HISTORY: . ALLERGIES: NKDA. PHYSICAL EXAMINATION: VITAL SIGNS: Stable. GENERAL: Normal. PELVIC: No vaginal bleeding noticed at this time. ASSESSMENT AND PLAN: A 31-year-old status post with post menorrhagia. Endometr ium is empty and nothing significant was seen by ultrasound. I do recommend transfusion. The goal hemoglobin is 9. Also, antibiotic is recommended. You can give the patient doxycycline or Zithroma x plus metronidazole. Sometimes endometritis causes bleeding and Cytotec 200 mcg p.o. q. 6 for 5 days is also recommended. This is a private patient of Dr. Dawson, who has privileges i this [facility]. Please contact him for any further questions or you can always reach us at [phone]. Dictated By: NAVJOT GALEANO/SANJANA Conf#: [id number] DID#: [id number]
[2017-06-09 16:58] LABS: FERRITIN 15.7 ng/ml (6.2-137.0)
[2017-06-09] MEDS ORDERED: DOXYCYCLINE 100 MG TAB PO SCH (21:00)
[2017-06-09] MEDS: metroNIDAZOLE 500 MG TAB PO SCH (21:45)
[2017-06-10] VITALS (8 sets, daily range): BP systolic 99–107; BP diastolic 54–60; PULSE 50–89; RESP 18–19
[2017-06-10] MEDS: DOXYCYCLINE 100 MG TAB PO SCH ×2 (06:38→17:18)
[2017-06-10] MEDS: metroNIDAZOLE 500 MG TAB PO SCH (06:38)
[2017-06-10] MEDS: FERROUS SULFATE (EC) 325 MG TAB PO SCH ×2 (08:11→12:45)
[2017-06-10] MEDS: CEFTRIAXONE 1 GM/50 ML (PMX) 50 ML IVPB SCH (08:12)
[2017-06-10 08:48] LABS: ALBUMIN/GLOBULIN RATIO 1.15; BILIRUBIN,INDIRECT 0.3 mg/dl (0-1.1); BILIRUBIN,TOTAL 0.3 mg/dl (0.2-1.3); CALCIUM 8.6 mg/dl (8.4-10.2); CREATININE 0.71 mg/dl (0.44-1.00); MAGNESIUM 1.8 mg/dl (1.7-2.5); POTASSIUM 3.7 mmol/L (3.5-5.1); TOTAL PROTEIN 5.6 g/dl (6.1-8.1)
[2017-06-10 09:17] LABS: THYROID STIMULATING HORMONE 1.99 MIU/L (0.465-4.680)
[2017-06-10 09:49] LABS: BASOPHILS % 0.2 % (0.0-2.0); EOSINOPHILS # 0.3 10^3/ul (0.0-0.5); EOSINOPHILS % 4.7 % (0.0-7.0); HEMATOCRIT 22.6 % (37.0-47.0); HEMOGLOBIN 7.4 g/dl (12.0-16.0); LYMPHOCYTES # 1.9 10^3/ul (0.8-2.9); LYMPHOCYTES % 34.8 % (15.0-51.0); MEAN CORPUSCULAR HEMOGLOBIN 27.6 pg (29.0-33.0); MEAN CORPUSCULAR HGB CONC 32.7 g/dl (32.0-37.0); MEAN CORPUSCULAR VOLUME 84.3 fl (82.0-101.0); MONOCYTE # 0.6 10^3/ul (0.3-0.9); MONOCYTES % 10.5 % (0.0-11.0); NEUTROPHIL # 2.7 10^3/ul (1.6-7.5); NEUTROPHILS % 49.6 % (39.0-77.0); PLATELET COUNT 165 10^3/UL (140-415); RED BLOOD COUNT 2.68 10^6/ul (4.20-5.40); RED CELL DISTRIBUTION WIDTH 14.8 % (11.5-14.5); WHITE BLOOD COUNT 5.4 10^3/ul (4.8-10.8)
--- NOTE | 2017-06-10 14:49 | PN ---
Date/Time of Note Date/Time of Note DATE: 06/10/17 TIME: 14:47 Assessment/Plan VTE Prophylaxis VTE Prophylaxis Intervention: SCD's Lines/Catheters IV [facility] Saline Lock Urinary Cath still in place: No Assessment/Plan Chief Complaint/Hosp Course Hospitalist service coverage S: 06/09: Events noted 06/10: no active bleeding. O: Vital signs stable PE No pallor Reg no m/r/g Clear Benign. Overweight No edema A/P 1. Menorrhagia post C Section. Stable s/p transfusion; cont cytotec. will try to reach Dr Marcos Dawson. 2. Acute blood loss anemia stable transfuse 3. Iron deficiency anemia 4. Acute cystitis? 5. Recent . post op infection/ endometriosis? cont antibiotics. Problems: Exam/Review of Systems Vital Signs Vitals Vital Signs Date Time Temp Pulse Resp B/P Pulse Ox O2 Delivery O2 Flow Rate FiO2 06/10/17 12:06 75 06/10/17 11:40 98.1 18 106/54 100 06/09/17 16:00 Room Air Intake and Output 06/09/17 06/09/17 06/10/17 15:00 23:00 07:00 Intake Total 1600 ml 600 ml Balance 1600 ml 600 ml Results Result Diagram: 06/10/17 0716 06/10/17 0716 Results 24 hrs Laboratory Tests Test 06/10/17 07:16 White Blood Count 5.4 # Red Blood Count 2.68 L Hemoglobin 7.4 L Hematocrit 22.6 L Mean Corpuscular Volume 84.3 Mean Corpuscular Hemoglobin 27.6 L Mean Corpuscular Hemoglobin Concent 32.7 Red Cell Distribution Width 14.8 H Platelet Count 165 # Mean Platelet Volume 11.0 H Neutrophils % 49.6 Lymphocytes % 34.8 Monocytes % 10.5 Eosinophils % 4.7 Basophils % 0.2 Nucleated Red Blood Cells % 0.0 Neutrophils # 2.7 Lymphocytes # 1.9 Monocytes # 0.6 Eosinophils # 0.3 Basophils # 0.0 Nucleated Red Blood Cells # 0.0 Sodium Level 143 Potassium Level 3.7 Chloride Level 109 Carbon Dioxide Level 26 Anion Gap 12 Blood Urea Nitrogen 16 Creatinine 0.71 Glucose Level 77 Calcium Level 8.6 Magnesium Level 1.8 Total Bilirubin 0.3 Direct Bilirubin 0.00 Indirect Bilirubin 0.3 Aspartate Amino Transf (AST/SGOT) 23 Alanine Aminotransferase (ALT/SGPT) 39 Alkaline Phosphatase 39 L Total Protein 5.6 L Albumin 3.0 L Globulin 2.60 Albumin/Globulin Ratio 1.15 Thyroid Stimulating Hormone (TSH) 1.990 Medications Medications Current Medications Ondansetron HCl (Zofran Inj) 4 mg Q6H PRN IV NAUSEA AND/OR VOMITING; Start at 04:00 Morphine Sulfate 2 mg 2 mg Q4H PRN IV PAIN; Start 06/09/17 at 04:00 Ceftriaxone Sodium (Rocephin) 50 ml @ 100 mls/hr 09 IVPB Last administered on 06/10/17 08:12; Admin Dose 100 MLS/HR; Start 06/09/17 at 07:00 Ferrous Sulfate (Ferrous Sulfate (Ec)) 325 mg TID PO Last administered on 06/10 12:45; Admin Dose 325 MG; Start 06/10/17 at 09:00 Doxycycline Hyclate (Vibramycin) 100 mg BID@06,18 PO Last administered on 06/10 06:38; Admin Dose 100 MG; Start 06/10/17 at 06:00 PAULETTE ALMAZAN MD Jun 10, 2017 14:49
--- NOTE | 2017-06-10 15:23 | DS ---
Date/Time of Note Date/Time of Note DATE: 06/10/17 TIME: 15:21 Discharge Summary Admission/Discharge Info Admit Date/Time Jun 09, 2017 at 01:24 Discharge Date/Time Discharge Diagnosis Menorrhagia Patient Condition: Stable Consults SHANK ARCHER Procedures transfused. Hx of Present Illness 31 old female admitted with menorrhagia. No fever or abdominal pain. Other chemo spontaneous bleeding or rashes. She had a about 1 month ago. Hospital Course Hospitalist service coverage --Evaluated and managed for menorrhagia. Seen by [facility]. Ultrasound negative. Transfuse 3 units. She is on OCPs at home. She was started on Cytotec here in the hospital. Her bleeding has resolved. Vital signs stable, fit for discharge. She was reinforced that she will have symptoms of anemia including fatigue weakness for a few weeks. She will visit her regular [facility] specialist in 1 week to discuss OCPs. After being seen here in the hospital there is obviously concerned about endometriosis. Therefore she will need Flagyl and doxycycline on discharge. S: 06/09: Events noted 06/10: no active bleeding. O: Vital signs stable PE No pallor Reg no m/r/g Clear Benign. Overweight No edema A/P 1. Menorrhagia post C Section. Stable s/p transfusion; cont cytotec. Dr Marcos Dawson follow-up pending. 2. Acute blood loss anemia stable transfuse 3. Iron deficiency anemia 4. Acute cystitis? 5. Recent . post op infection/ endometriosis? cont antibiotics. Home Meds Reported Medications Vit-Iron Fumarate-FA ( Tablet) 1 Each Tablet, 1 TAB PO DAILY, TAB 06/09/17 Iron,Carbonyl/Vit C/Vit B12/Fa (IRON 100 PLUS TABLET) 1 Each Tablet, 1 EACH PO, TAB 04/10/17 Discontinued Reported Medications [id number]-Zrwe-Uhjwi Acid (Prenata Chewable) 1 Each Tab.chew, 1 TAB PO DAILY, TAB.CHEW 06/09/17 [id number] Eyfavvpg-AT-RYB ( 19) 1 Each Tablet, 1 TAB PO DAILY, TAB 06/09/17 Primary Care Provider Not On Staff Doctor Pending Labs Laboratory Tests Test 06/10/17 07:16 White Blood Count 5.410^3/ul (4.8-10.8) Red Blood Count 2.6810^6/ul (4.20-5.40) Hemoglobin 7.4g/dl (12.0-16.0) Hematocrit 22.6% (37.0-47.0) Mean Corpuscular Volume 84.3fl (82.0-101.0) Mean Corpuscular Hemoglobin 27.6pg (29.0-33.0) Mean Corpuscular Hemoglobin Concent 32.7g/dl (32.0-37.0) Red Cell Distribution Width 14.8% (11.5-14.5) Platelet Count 91158^3/UL (140-415) Mean Platelet Volume 11.0fl (7.4-10.4) Neutrophils % 49.6% (39.0-77.0) Lymphocytes % 34.8% (15.0-51.0) Monocytes % 10.5% (0.0-11.0) Eosinophils % 4.7% (0.0-7.0) Basophils % 0.2% (0.0-2.0) Nucleated Red Blood Cells % 0.0/100WBC (0.0-0.0) Neutrophils # 2.710^3/ul (1.6-7.5) Lymphocytes # 1.910^3/ul (0.8-2.9) Monocytes # 0.610^3/ul (0.3-0.9) Eosinophils # 0.310^3/ul (0.0-0.5) Basophils # 0.010^3/ul (0.0-0.1) Nucleated Red Blood Cells # 0.010^3/ul (0.0-0.0) Sodium Level 143mmol/L (135-144) Potassium Level 3.7mmol/L (3.5-5.1) Chloride Level 109mmol/L (97-110) Carbon Dioxide Level 26mmol/L (21-31) Anion Gap 12 (8-16) Blood Urea Nitrogen 16mg/dl (7-20) Creatinine 0.71mg/dl (0.44-1.00) Glucose Level 77mg/dl (70-220) Calcium Level 8.6mg/dl (8.4-10.2) Magnesium Level 1.8mg/dl (1.7-2.5) Total Bilirubin 0.3mg/dl (0.2-1.3) Direct Bilirubin 0.00mg/dl (0.00-0.20) Indirect Bilirubin 0.3mg/dl (0-1.1) Aspartate Amino Transf (AST/SGOT) 23IU/L (15-46) Alanine Aminotransferase (ALT/SGPT) 39IU/L (13-69) Alkaline Phosphatase 39IU/L (42-121) Total Protein 5.6g/dl (6.1-8.1) Albumin 3.0g/dl (3.3-4.9) Globulin 2.60g/dl (1.3-3.2) Albumin/Globulin Ratio 1.15 Thyroid Stimulating Hormone (TSH) 1.990MIU/L (0.465-4.680) Microbiology Date/Time Source Procedure Growth Status 06/09/17 18:50 Clean Catch Urine Urine Culture - Preliminary NO GROWTH AFTER 24 HOURS Resulted PAULETTE ALMAZAN MD Jun 10, 2017 15:23
--- NOTE | 2017-06-10 15:26 | PDOCDIS ---
Discharge Instructions DIAGNOSIS Discharge Diagnosis Menorrhagia CONDITION Patient Condition: Good HOME CARE INSTRUCTIONS: Special Diet: REGULAR DIET ACTIVITY: Activity Restrictions: Slowly Increase Activity Do not Drive FOLLOW UP/APPOINTMENTS Follow-up Plan PCP 1wk Dr Marcos Dawson 1wk PAULETTE ALMAZAN MD Jun 10, 2017 15:26
[2017-06-10] MEDS ORDERED: FER325 PO (15:28)
[2017-06-10] MEDS ORDERED: METR250T PO (15:28)
[2017-06-10] MEDS ORDERED: DOXY100T2 PO (15:28)
[2017-06-10] MEDS ORDERED: [UNRECOGNIZED DRUG - CODE] PO (15:43)
[2017-06-10] MEDS ORDERED: metroNIDAZOLE 250 MG TAB PO SCH (16:00)
[2017-06-11] MEDS ORDERED: ASCORBIC ACID 500 MG TAB PO SCH (09:00)
== END 2017-06-10 17:21 | disposition home or self-care (01) ==
LOC: E/R 21:58 → TEL 06-09 01:24
PROVIDERS: ADMIT Internal Medicine; ATTEND Internal Medicine
DX: N92.0 Excessive and frequent menstruation with regular cycle (principal); D62 Acute posthemorrhagic anemia; D50.9 Iron deficiency anemia, unspecified; E87.6 Hypokalemia; E87.0 Hyperosmolality and hypernatremia
CPT/HCPCS: 36415; 36430; 76856; 80048; 80053; 81001; 82306; 82728; 83540; 83735; 84100; 84443; 84702; 85025; 85610; 85730; 86850; 86900; 86901; 86920; 87086; 96374; 96376; J0696; J2405; J7040; P9016; Z7500; Z7502; Z7610; G0378; A4310

== ENCOUNTER 2017-06-15 18:47 | Emergency (ER) | payer OTHER ==
[~2017-06-15] VITALS: Ht 160 cm; Wt 68.0 kg
[~2017-06-15 18:47] MED LIST changes: +DOXY100T2 PO; +FER325 PO; +METR250T PO; +PREN1TAB17 PO; +[UNRECOGNIZED DRUG - CODE] PO
[2017-06-15 18:50] VITALS: Ht 160 cm; Wt 68.0 kg
[2017-06-15 19:26] LABS: BASOPHILS % 0.4 % (0.0-2.0); EOSINOPHILS # 0.2 10^3/ul (0.0-0.5); EOSINOPHILS % 4.8 % (0.0-7.0); HEMOGLOBIN 8.5 g/dl (12.0-16.0); LYMPHOCYTES # 1.5 10^3/ul (0.8-2.9); LYMPHOCYTES % 32.4 % (15.0-51.0); MEAN CORPUSCULAR HEMOGLOBIN 27.2 pg (29.0-33.0); MEAN CORPUSCULAR HGB CONC 31.5 g/dl (32.0-37.0); MEAN CORPUSCULAR VOLUME 86.5 fl (82.0-101.0); MEAN PLATELET VOLUME 10.9 fl (7.4-10.4); MONOCYTE # 0.5 10^3/ul (0.3-0.9); MONOCYTES % 10.4 % (0.0-11.0); NEUTROPHIL # 2.4 10^3/ul (1.6-7.5); NEUTROPHILS % 51.8 % (39.0-77.0); PLATELET COUNT 258 10^3/UL (140-415); RED BLOOD COUNT 3.12 10^6/ul (4.20-5.40); RED CELL DISTRIBUTION WIDTH 15.7 % (11.5-14.5); WHITE BLOOD COUNT 4.6 10^3/ul (4.8-10.8)
--- NOTE | 2017-06-15 19:44 | ERD ---
ER Documentation Chief Complaint Chief Complaint heavy vag bleed x 35 min, same 1 wk ago w/ low h&h; 2mo HPI This is a 31-year-old female who presents to the emergency room with vaginal bleeding. The patient is a with delivery in March who is been dealing with bleeding. The patient has had multiple evaluations and has required a transfusion. [facility] during which time she received a blood transfusion. She had an ultrasound at that time showing no evidence of intrauterine process. Transfused without [facility] [employer] intervention and was discharged. The patient today around 6 PM started to have a gush of blood. She has painless vaginal bleeding that is significant. She is soaking her clothes. She states the bleeding is somewhat slowed. She denies any lightheadedness chest pain or shortness of breath. ROS All systems reviewed and are negative except as per history of present illness. Medications Home Meds Active Scripts Misoprostol (Cytotec) 200 Mcg Tablet, 200 MCG PO QID for 5 Days, #30 TAB Prov:PAULETTE ALMAZAN MD 06/10/17 Metronidazole* (Flagyl*) 250 Mg Tablet, 250 MG PO Q8 for 7 Days, #20 TAB Prov:PAULETTE ALMAZAN MD 06/10/17 Doxycycline* (Vibramycin*) 100 Mg Tab, 100 MG PO BID@06,18 for 7 Days, #14 TAB Prov:PAULETTE ALMAZAN MD 06/10/17 Ferrous Sulfate* (Ferrous Sulfate*) 325 Mg Tabec, 325 MG PO TID for 14 Days, # 30 TAB 3 Refills Prov:PAULETTE ALMAZAN MD 06/10/17 Discontinued Reported Medications Vit-Iron Fumarate-FA ( Tablet) 1 Each Tablet, 1 TAB PO DAILY, TAB 06/09/17 Iron,Carbonyl/Vit C/Vit B12/Fa (IRON 100 PLUS TABLET) 1 Each Tablet, 1 EACH PO, TAB 04/10/17 [id number]-Fdyma Acid (Prenata Chewable) 1 Each Tab.chew, 1 TAB PO DAILY, TAB.CHEW 06/09/17 [id number] Obvpypci-TX-EVP ( 19) 1 Each Tablet, 1 TAB PO DAILY, TAB 06/09/17 Allergies Allergies: Coded Allergies: No Known Allergy (Unverified , 06/15/17) PMhx/Soc Medical and Surgical Hx: pt denies Medical Hx History of Surgery: Yes (CAESARIAN SECTION) Anesthesia Reaction: No Hx Neurological Disorder: No Hx Respiratory Disorders: No Hx Cardiac Disorders: No Hx Psychiatric Problems: No Hx Miscellaneous Medical Probl: No Hx Alcohol Use: No Hx Substance Use: No Hx Tobacco Use: No Smoking Status: Never smoker FmHx Family History: No diabetes Physical Exam Vitals Vital Signs Date Time Temp Pulse Resp B/P Pulse Ox O2 Delivery O2 Flow Rate FiO2 06/15/17 18:50 98.6 107 18 110/67 100 Physical Exam General: Well developed, well nourished, no acute distress Head: Normocephalic, atraumatic. Eyes: Pupils equally reactive, EOM intact, conjunctival pallor ENT: Moist mucous membranes Neck: Supple, no lymphadenopathy Respiratory: Lungs clear bilaterally, no distress Cardiovascular: RRR, no murmurs, rubs, or gallops Abdominal: Soft, non-tender, non-distended, no peritoneal signs : Chaperoned external vaginal exam shows a small clot at the vaginal office with mild oozing MSK: No edema, no unilateral swelling, 5/5 strength Neurologic: Alert and oriented, moving all extremities, normal speech, no focal weakness, no cerebellar signs Skin: No rash Psych: Normal mood Result Diagram: 06/15/17190906/15/171909 Results 24 hrs Laboratory Tests Test 06/15/17 19:10 White Blood Count 4.610^3/ul Red Blood Count 3.1210^6/ul Hemoglobin 8.5g/dl Hematocrit 27.0% Mean Corpuscular Volume 86.5fl Mean Corpuscular Hemoglobin 27.2pg Mean Corpuscular Hemoglobin Concent 31.5g/dl Red Cell Distribution Width 15.7% Platelet Count 50413^3/UL Mean Platelet Volume 10.9fl Neutrophils % 51.8% Lymphocytes % 32.4% Monocytes % 10.4% Eosinophils % 4.8% Basophils % 0.4% Nucleated Red Blood Cells % 0.0/100WBC Neutrophils # 2.410^3/ul Lymphocytes # 1.510^3/ul Monocytes # 0.510^3/ul Eosinophils # 0.210^3/ul Basophils # 0.010^3/ul Nucleated Red Blood Cells # 0.010^3/ul Prothrombin Time 13.2Sec Prothrombin Time Ratio 1.0 INR International Normalized Ratio 0.99 Activated Partial Thromboplast Time 27.9Sec Sodium Level 143mmol/L Potassium Level 3.7mmol/L Chloride Level 106mmol/L Carbon Dioxide Level 27mmol/L Anion Gap 14 Blood Urea Nitrogen 16mg/dl Creatinine 0.65mg/dl Glucose Level 86mg/dl Calcium Level 9.1mg/dl Procedures/[facility] LAB INTERPRETATION: Hemoglobin of 8.5 MEDICAL DECISION MAKING: The patient presents to the emergency room with vaginal bleeding. The patient has had a protracted course since her delivery several months ago. The patient has been diagnosed with dysfunctional uterine bleeding and menorrhagia. She has been recently tried on Cytotec. At this point based on clinical examination the patient still has active bleeding but it has slowed. Over the course of approximately 45 minutes she has not soaked through one pad. Patient has no pain. She has recent ultrasound imaging that showed no evidence of retained products of conception. ER COURSE: The patient's hemoglobin is stable at 8.5. She is hemodynamically stable. I attempted to contact her primary [facility] ASSEMBLER, Dr. Dawson who is not on-call. The on-call provider had recommended that I speak to the on-call labors. Dr. Red is electrician front. I discussed the case with Dr. Winston. At this point she does not feel the patient meets criteria for D&C. She states that outpatient management may be appropriate. I discussed this with the patient. In my opinion given that the patient had significant hemorrhage upon arrival though it has slowed I believe his serial hemoglobin would be reasonable. If the hemoglobin is stable and not trending down then outpatient follow-up with her OB /DAMPENER Dr. Dawson tomorrow may be reasonable. The patient may still require D& C but may be not emergently. The family is agreeable and she is resting comfortably currently. I kept the patient and/or family informed of laboratory and diagnostic imaging results throughout the emergency room course. DISPOSITION PLAN: Pending repeat hemoglobin. If trending down Dr. Red will be reconsulted for possible admission. Patient endorsed to Dr. Orellana for reevaluation and potential discharge Departure Diagnosis: Primary Impression: Dysfunctional uterine bleeding Additional Impressions: Menorrhagia Menorrahagia type: with irregular cycle Qualified Code: N92.1 - Menorrhagia with irregular cycle Microcytic anemia Condition: CALVIN Short MD Jun 15, 2017 19:44
[2017-06-15 19:49] LABS: INR 0.99; PROTIME 13.2 Sec (11.9-14.9)
[2017-06-15 19:50] LABS: CALCIUM 9.1 mg/dl (8.4-10.2); CREATININE 0.65 mg/dl (0.44-1.00); PARTIAL THROMBOPLASTIN TIME 27.9 Sec (25.0-35.0); POTASSIUM 3.7 mmol/L (3.5-5.1)
[2017-06-15 21:26] LABS: BASOPHILS % 0.4 % (0.0-2.0); EOSINOPHILS # 0.2 10^3/ul (0.0-0.5); EOSINOPHILS % 3.8 % (0.0-7.0); HEMATOCRIT 24.2 % (37.0-47.0); HEMOGLOBIN 7.5 g/dl (12.0-16.0); LYMPHOCYTES # 1.3 10^3/ul (0.8-2.9); LYMPHOCYTES % 24.4 % (15.0-51.0); MEAN CORPUSCULAR HEMOGLOBIN 26.7 pg (29.0-33.0); MEAN CORPUSCULAR VOLUME 86.1 fl (82.0-101.0); MEAN PLATELET VOLUME 10.7 fl (7.4-10.4); MONOCYTE # 0.4 10^3/ul (0.3-0.9); MONOCYTES % 8.4 % (0.0-11.0); NEUTROPHIL # 3.3 10^3/ul (1.6-7.5); NEUTROPHILS % 62.8 % (39.0-77.0); PLATELET COUNT 234 10^3/UL (140-415); RED BLOOD COUNT 2.81 10^6/ul (4.20-5.40); RED CELL DISTRIBUTION WIDTH 15.6 % (11.5-14.5); WHITE BLOOD COUNT 5.3 10^3/ul (4.8-10.8)
[2017-06-15] MEDS ORDERED: SOD CHLORIDE 0.9% 1,000 ML IV STA (22:19)
[2017-06-15 23:40] VITALS: BP 95/62; PULSE 80; RESP 18
== END 2017-06-16 00:16 | disposition home or self-care (01) ==
LOC: E/R 18:47
DX: N93.8 Other specified abnormal uterine and vaginal bleeding (principal); N92.1 Excessive and frequent menstruation with irregular cycle; D50.9 Iron deficiency anemia, unspecified
CPT/HCPCS: 36415; 80048; 84702; 85025; 85610; 85730; 86850; 86900; 86901; J7030; Z7502